=== PATIENT | male | born 1985 | race Caucasian/White ===

== ENCOUNTER → 2016-08-12 | Outpatient (REF) | payer OTHER ==
[~2016-08-12] MED LIST: IBUP200C PO; KEPP250T5 PO; NIFE60TA6 PO; No Historical Meds
[2016-08-12 12:26] LABS: ALBUMIN 4.2 GM/DL (3.2-5.2); ALBUMIN/GLOBULIN RATIO 1.11 (1.00-1.93); BILIRUBIN,DIRECT 0.2 MG/DL (0.0-0.2); BILIRUBIN,TOTAL 0.8 MG/DL (0.2-1.0)
== END ==
LOC: M LAB REF 10:56
PROVIDERS: ATTEND Surgery
DX: Z51.81 Encounter for therapeutic drug level monitoring (principal)

== ENCOUNTER 2016-10-19 18:05 | Emergency (ER) | payer MEDICAID, OTHER ==
[~2016-10-19] VITALS: Ht 172.7 cm; Wt 77.0 kg
[~2016-10-19 18:05] MED LIST changes: -IBUP200C PO; +IBUP200C10 PO
[2016-10-19] MEDS ORDERED: IBUP-1114 PO (18:15)
[2016-10-19] MEDS ORDERED: ACET30TAB PO (18:15)
--- NOTE | 2016-10-19 19:20 | REPUSA ---
CLINICAL HISTORY: Pain and swelling of the right testicle. TECHNIQUE: Realtime sonographic images were obtained in multiple projections. COMMENTS: Both testicles are of normal size and shape and are of homogeneous echo texture. The right testicle measures 3.9 x 2.8 x 2.8 cm. The right epididymal head measures 10 mm. The left testicle measures 4. 2 x 2.6 x 3.2 cm. Left epididymal head measures 10.8 mm. There is a tiny left epididymal head cyst measuring 3.3 x 2.6 x 2.3 mm. The scrotal wall thickness on the right measures 3.2 mm. The scrotal wall thickness on the left sigifredo ures 2.2 mm. Color Doppler images reveal normal symmetrical flow to the testicles. There is no evidence for testi cular torsion. There is no evidence of varicocele or hydrocele. IMPRESSION: There is a tiny left epididymal head cyst. Otherwise the study is unremarkable.
[2016-10-19] MEDS ORDERED: DOXY100C37 PO (19:26)
[2016-10-19] MEDS ORDERED: NAPR500T PO (19:26)
[2016-10-19] MEDS ORDERED: cefTRIAXone SOD 250 MG VIAL (J0696) IM ONE (19:30)
[2016-10-19 19:57] VITALS: BP 128/67
== END 2016-10-19 19:58 | disposition home or self-care (01) ==
LOC: M ED 18:05
DX: N45.1 Epididymitis (principal); Z87.891 Personal history of nicotine dependence
CPT/HCPCS: 76870; 93976; 96372; 99282; J0696

== ENCOUNTER → 2016-12-30 | Outpatient (REF) | payer MEDICAID ==
[~2016-12-30] MED LIST changes: +ACET30TAB PO; +DOXY100C37 PO; +IBUP-1114 PO; +NAPR500T PO
[2017-01-14 00:06] LABS: BENZODIAZEPINES, URINE SCREEN Negative ng/mL (Cutoff=200); METHADONE, URINE SCREEN Negative ng/mL (Cutoff=300); NALOXONE RESULT Negative (.); URINE NORBUPRENORPHINE Positive (.); URINE NORBUPRENORPHINE CONFIRM 110 ng/mL (Cutoff=10); pH, URINE 5.3 (4.5-8.9)
== END ==
LOC: M LAB REF 16:25
PROVIDERS: ATTEND Family Medicine Addiction Medicine
DX: F11.21 Opioid dependence, in remission (principal)

== ENCOUNTER 2017-04-04 10:40 | Emergency (ER) | payer OTHER | END 2017-04-04 13:45 | disposition home or self-care (01) | LOC: M ED 10:40 | DX: J06.9 Acute upper respiratory infection, unspecified (principal); J45.909 Unspecified asthma, uncomplicated; R56.9 Unspecified convulsions; F41.9 Anxiety disorder, unspecified; Z79.891 Long term (current) use of opiate analgesic; Z79.899 Other long term (current) drug therapy | CPT/HCPCS: 71046 ==

== ENCOUNTER → 2017-05-13 | Outpatient (CLI) | payer MEDICAID, OTHER | LOC: M OUTALCOH 07:32 | DX: Z13.9 Encounter for screening, unspecified (principal); F11.20 Opioid dependence, uncomplicated; F12.20 Cannabis dependence, uncomplicated ==

== ENCOUNTER 2017-10-01 08:54 | Emergency (ER) | payer OTHER ==
[2017-10-01] MEDS: GI COCKTAIL 50ML BTL(HYOSCYAMINE/MAALOX/LIDOCAINE VISCOUS)(1:3:1) PO (09:38)
[2017-10-01] MEDS: PANTOPRAZOLE 40MG INJ (PROTONIX) (C9113) IV (09:38)
[2017-10-01] MEDS: KETOROLAC 30 MG/ML VIAL (J1885) IV (09:38)
[2017-10-01] MEDS: NS 1,000 ML IV ×2 (09:38→11:14)
[2017-10-01] MEDS: ONDANSETRON 4MG/2ML VIAL (J2405) IV (09:38)
[2017-10-01 10:31] LABS: BASO % 0.2 % (0.0-1.0); EOS % 0.3 % (0.0-3.0); HEMATOCRIT 47.2 % (42.0-52.0); HEMOGLOBIN 16.8 g/dl (13.5-17.5); IMMATURE GRANULOCYTE % 0.4 % (0-3.0); LYMPH # 1.4 10^3/uL (1.5-4.5); LYMPH % 9.7 % (24.0-44.0); MEAN CORPUSCULAR HEMOGLOBIN 28.8 pg (27.0-33.0); MEAN CORPUSCULAR HGB CONC 35.6 g/dl (32.0-36.5); MONO # 1.6 10^3/uL (0.0-0.8); MONO % 11.5 % (0.0-5.0); NEUTROPHILS # 11.1 10^3/uL (1.8-7.7); NEUTROPHILS % 77.9 % (36.0-66.0); PLATELET COUNT, AUTOMATED 256 10^3/uL (150-450); RED BLOOD COUNT 5.83 10^6/uL (4.30-6.10); WHITE BLOOD COUNT 14.3 10^3/uL (4.0-10.0)
[2017-10-01 10:39] LABS: APPEARANCE, URINE CLEAR (CLEAR); BACTERIA, URINE AUTO NEGATIVE (NEGATIVE); BILIRUBIN, URINE AUTO NEGATIVE (NEGATIVE); BLOOD, URINE BLOOD 3+ (NEGATIVE); COLOR, URINE YELLOW (YELLOW); GLUCOSE, URINE (UA) AUTO NEGATIVE (NEGATIVE); KETONE, URINE AUTO TRACE mg/dL (NEGATIVE); LEUKOCYTE ESTERASE, URINE AUTO NEGATIVE (NEGATIVE); NITRITE, URINE AUTO NEGATIVE (NEGATIVE); PROTEIN, URINE AUTO 2+ mg/dL (NEGATIVE); RBC, URINE AUTO 8 /HPF (0-3); SPECIFIC GRAVITY URINE AUTO 1.021 (1.002-1.035); SQUAMOUS EPITHELIAL CELL UR AU 0 /HPF (0-6); WBC, URINE AUTO 9 /HPF (0-3)
[2017-10-01] MEDS ORDERED: methylPREDNISolone INJ 40 MG/1 ML VIAL (J2920) IV (10:45)
[2017-10-01 10:53] LABS: ALBUMIN 4.2 GM/DL (3.2-5.2); ALBUMIN/GLOBULIN RATIO 0.89 (1.00-1.93); ALKALINE PHOSPHATASE 95 U/L (45-117); ALT/SGPT 52 U/L (12-78); ANION GAP 6 MEQ/L (8-16); AST/SGOT 54 U/L (7-37); BILIRUBIN,TOTAL 1.1 MG/DL (0.2-1.0); BLOOD UREA NITROGEN 28 MG/DL (7-18); CARBON DIOXIDE LEVEL 33 MEQ/L (21-32); CHLORIDE LEVEL 90 MEQ/L (98-107); CREATININE FOR GFR 1.12 MG/DL (0.70-1.30); GLOMERULAR FILTRATION RATE > 60.0 (>60); GLUCOSE, FASTING 93 MG/DL (70-100); LIPASE 146 U/L (73-393); POTASSIUM SERUM 3.7 MEQ/L (3.5-5.1); SODIUM LEVEL 129 MEQ/L (136-145); TOTAL PROTEIN 8.9 GM/DL (6.4-8.2)
[2017-10-01] MEDS: methylPREDNISolone INJ 125 MG/2 ML VIAL (J2930) IV (11:00)
[2017-10-01] MEDS: diphenhydrAMINE INJ 50MG/ML VIAL (J1200) IV (11:00)
[2017-10-01 12:38] LABS: ANION GAP 4 MEQ/L (8-16); BLOOD UREA NITROGEN 26 MG/DL (7-18); CALCIUM LEVEL 7.8 MG/DL (8.5-10.1); CARBON DIOXIDE LEVEL 34 MEQ/L (21-32); CHLORIDE LEVEL 98 MEQ/L (98-107); CREATININE FOR GFR 0.98 MG/DL (0.70-1.30); GLOMERULAR FILTRATION RATE > 60.0 (>60); GLUCOSE, FASTING 84 MG/DL (70-100); POTASSIUM SERUM 3.5 MEQ/L (3.5-5.1); SODIUM LEVEL 136 MEQ/L (136-145)
== END 2017-10-01 13:07 | disposition home or self-care (01) ==
LOC: M ED 08:54
DX: R10.10 Upper abdominal pain, unspecified (principal); R11.2 Nausea with vomiting, unspecified; R31.9 Hematuria, unspecified; T40.2X5A Adverse effect of other opioids, initial encounter; X58.XXXA Exposure to other specified factors, initial encounter; Y92.89 Other specified places as the place of occurrence of the external cause; J45.909 Unspecified asthma, uncomplicated; I10 Essential (primary) hypertension; R56.9 Unspecified convulsions; K21.9 Gastro-esophageal reflux disease without esophagitis; Z79.891 Long term (current) use of opiate analgesic; Z88.0 Allergy status to penicillin; F17.210 Nicotine dependence, cigarettes, uncomplicated
CPT/HCPCS: C9113

== ENCOUNTER → 2017-11-13 | Outpatient (CLI) | payer OTHER ==
[2017-11-13 18:15] LABS: HEMATOCRIT 39.2 % (42.0-52.0); HEMOGLOBIN 13.4 g/dl (13.5-17.5); MEAN CORPUSCULAR HEMOGLOBIN 28.5 pg (27.0-33.0); MEAN CORPUSCULAR HGB CONC 34.2 g/dl (32.0-36.5); MEAN CORPUSCULAR VOLUME 83.2 fl (80.0-96.0); PLATELET COUNT, AUTOMATED 233 10^3/uL (150-450); RED BLOOD COUNT 4.71 10^6/uL (4.30-6.10); RED CELL DISTRIBUTION WIDTH 12.3 % (11.5-14.5); WHITE BLOOD COUNT 8.7 10^3/uL (4.0-10.0)
[2017-11-13 18:48] LABS: ALBUMIN/GLOBULIN RATIO 1.11 (1.00-1.93); ALKALINE PHOSPHATASE 87 U/L (45-117); ALT/SGPT 38 U/L (12-78); ANION GAP 11 MEQ/L (8-16); AST/SGOT 25 U/L (7-37); BILIRUBIN,TOTAL 0.4 MG/DL (0.2-1.0); BLOOD UREA NITROGEN 7 MG/DL (7-18); CALCIUM LEVEL 8.8 MG/DL (8.5-10.1); CARBON DIOXIDE LEVEL 26 MEQ/L (21-32); CHLORIDE LEVEL 105 MEQ/L (98-107); CREATININE FOR GFR 0.88 MG/DL (0.70-1.30); GLOMERULAR FILTRATION RATE > 60.0 (>60); GLUCOSE, FASTING 98 MG/DL (70-100); POTASSIUM SERUM 3.6 MEQ/L (3.5-5.1); SODIUM LEVEL 142 MEQ/L (136-145); TOTAL PROTEIN 7.6 GM/DL (6.4-8.2)
[2017-11-13 20:53] LABS: CHLAMYDIA DNA AMPLIFICATION NEGATIVE (NEGATIVE); GC DNA AMPLIFICATION NEGATIVE (NEGATIVE)
[2017-11-16 11:31] LABS: HEPATITIS B SURFACE ANTIGEN NEGATIVE (NEGATIVE)
[2017-11-16 12:00] LABS: HEPATITIS C VIRUS ABY INDEX > 11.0 INDEX (<0.8)
[2017-11-18 19:15] LABS: HIV 1&2 SCREEN CENTAUR NEGATIVE (NEGATIVE)
[2017-11-19 14:17] LABS: HCV RNA NAA QUALITATIVE Positive (Negative)
== END ==
LOC: M LAB 17:18
DX: F11.20 Opioid dependence, uncomplicated (principal)
CPT/HCPCS: 93005

== ENCOUNTER → 2018-09-15 | Outpatient (CLI) | payer OTHER ==
[~2018-09-15] MED LIST changes: +ACET-716 PO; -ACET30TAB PO; +GABA600T4 PO; +HYDR25OI TOP; -IBUP200C10 PO; +IBUP200C25 PO; +NAPR-837 PO; -NAPR500T PO; +SUBO8MIS; +TESS100C PO; +ZOFR4TAB14 PO
--- NOTE | 2018-09-15 21:48 | REP ---
Clinical: Trauma. Technique: AP, lateral, bilateral oblique views left foot . Findings: The osseous structures and joint spaces are intact and normal. No significant acute fracture identified. A minuscule bone density is identified at the base of the fourth toe distal phalanx which may represent tiny fracture and should be correlated clinically. Surrounding soft tissues are unremarkable. No subcutaneous emphysema or radiodense foreign body. Impression: As above. Electronically Signed by Howard Grace MD 09/15/2018 09:40 P
== END ==
LOC: M WUC 11:46
PROVIDERS: ATTEND Physician Assistant
DX: M79.675 Pain in left toe(s) (principal)

== ENCOUNTER 2018-12-17 13:00 | Emergency (ER) | payer OTHER ==
[~2018-12-17] VITALS: Ht 175.3 cm; Wt 85.0 kg
[~2018-12-17 13:00] MED LIST changes: -TRIL1TAB PO
--- NOTE | 2018-12-17 15:03 | REP ---
Head CT without contrast: History: Seizures. Comparison study: Comparison CT brain study November 09, 2010. Comparison MRI study August 14, 2009. CT findings: Bone window settings demonstrate an intact bony calvarium. There is no evidence of skull fracture or incidental bony calvarial lesion. The visualized paranasal sinuses appear clear. No intraorbital abnormality is seen. On soft tissue window setting images; the lateral, third, and fourth ventricles are normal in size and position. Ruvalcaba-white differentiation pattern is normal above and below the tentorium. There are is no evidence of intracranial hemorrhage. No mass, edema, infarction, or midline shift is seen. No extra-axial fluid collection is appreciated. Impression: Negative noncontrast head CT. Electronically Signed by Ciaran Maddox MD 12/17/2018 02:54 P
[2018-12-17] MEDS ORDERED: OXcarbazepine 300 MG TAB PO STA (15:17)
[2018-12-17] MEDS ORDERED: TRIL1TAB PO (15:18)
[2018-12-17 15:45] VITALS: BP 102/61
== END 2018-12-17 15:50 | disposition home or self-care (01) ==
LOC: M ED 13:00
DX: R56.9 Unspecified convulsions (principal); F17.200 Nicotine dependence, unspecified, uncomplicated; F12.10 Cannabis abuse, uncomplicated; Z79.899 Other long term (current) drug therapy; Z88.0 Allergy status to penicillin

== ENCOUNTER → 2018-12-17 | Outpatient (CLI) | payer OTHER ==
[~2018-12-17] MED LIST changes: +TRIL1TAB PO
[2018-12-17 13:42] LABS: HEMATOCRIT 42.7 % (42.0-52.0); HEMOGLOBIN 14.4 g/dl (13.5-17.5); MEAN CORPUSCULAR HEMOGLOBIN 28.9 pg (27.0-33.0); MEAN CORPUSCULAR HGB CONC 33.7 g/dl (32.0-36.5); MEAN CORPUSCULAR VOLUME 85.6 fl (80.0-96.0); PLATELET COUNT, AUTOMATED 224 10^3/uL (150-450); RED BLOOD COUNT 4.99 10^6/uL (4.30-6.10)
[2018-12-17 14:16] LABS: ALBUMIN 3.9 GM/DL (3.2-5.2); ALT/SGPT 48 U/L (12-78); BILIRUBIN,TOTAL 0.4 MG/DL (0.2-1.0); BLOOD UREA NITROGEN 8 MG/DL (7-18); CALCIUM LEVEL 9.4 MG/DL (8.5-10.1); CARBON DIOXIDE LEVEL 30 MEQ/L (21-32); CHLORIDE LEVEL 105 MEQ/L (98-107); CREATININE FOR GFR 0.94 MG/DL (0.70-1.30); GLOMERULAR FILTRATION RATE > 60.0 (>60); GLUCOSE, FASTING 99 MG/DL (70-100); POTASSIUM SERUM 4.2 MEQ/L (3.5-5.1); SODIUM LEVEL 141 MEQ/L (136-145); TOTAL PROTEIN 7.5 GM/DL (6.4-8.2)
[2018-12-17 14:26] LABS: HEPATITIS B SURFACE ANTIGEN NEGATIVE (NEGATIVE)
[2018-12-17 14:55] LABS: HIV 1&2 SCREEN CENTAUR NEGATIVE (NEGATIVE)
[2018-12-17 17:44] LABS: HEPATITIS C VIRUS ABY INDEX > 11.0 INDEX (<0.8)
--- NOTE | 2018-12-18 10:05 | ECGEPIP ---
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
[2018-12-20 16:08] LABS: CHLAMYDIA DNA AMPLIFICATION NEGATIVE (NEGATIVE); GC DNA AMPLIFICATION NEGATIVE (NEGATIVE)
== END ==
LOC: M LAB 12:17
PROVIDERS: ATTEND Family Medicine
DX: F11.20 Opioid dependence, uncomplicated (principal)

== ENCOUNTER → 2019-04-19 | Outpatient (CLI) | payer OTHER ==
[~2019-04-19] MED LIST changes: +NIFE1TAB51 PO; -NIFE60TA6 PO; +TRIL1TAB PO
[2019-04-19 11:51] LABS: BASO % 0.4 % (0.0-1.0); EOS # 0.1 10^3/uL (0.0-0.5); EOS % 0.9 % (0.0-3.0); HEMATOCRIT 43.2 % (42.0-52.0); HEMOGLOBIN 14.9 g/dl (13.5-17.5); LYMPH # 1.9 10^3/uL (1.5-5.0); LYMPH % 23.8 % (24.0-44.0); MEAN CORPUSCULAR HEMOGLOBIN 29.5 pg (27.0-33.0); MEAN CORPUSCULAR HGB CONC 34.5 g/dl (32.0-36.5); MEAN CORPUSCULAR VOLUME 85.5 fl (80.0-96.0); MONO # 0.6 10^3/uL (0.0-0.8); MONO % 7.2 % (0.0-5.0); NEUTROPHILS # 5.2 10^3/uL (1.5-8.5); NEUTROPHILS % 67.4 % (36.0-66.0); PLATELET COUNT, AUTOMATED 225 10^3/uL (150-450); RED BLOOD COUNT 5.05 10^6/uL (4.30-6.10); WHITE BLOOD COUNT 7.8 10^3/uL (4.0-10.0)
[2019-04-19 12:19] LABS: ALBUMIN 4.2 GM/DL (3.2-5.2); ALT/SGPT 39 U/L (12-78); BILIRUBIN,TOTAL 0.3 MG/DL (0.2-1.0); BLOOD UREA NITROGEN 11 MG/DL (7-18); CALCIUM LEVEL 9.5 MG/DL (8.5-10.1); CARBON DIOXIDE LEVEL 30 MEQ/L (21-32); CHLORIDE LEVEL 103 MEQ/L (98-107); CREATININE FOR GFR 0.86 MG/DL (0.70-1.30); GLOMERULAR FILTRATION RATE > 60.0 (>60); GLUCOSE, FASTING 83 MG/DL (70-100); POTASSIUM SERUM 4.3 MEQ/L (3.5-5.1); SODIUM LEVEL 137 MEQ/L (136-145); TOTAL PROTEIN 7.2 GM/DL (6.4-8.2)
== END ==
LOC: M LAB 10:32
PROVIDERS: ATTEND Psychiatry & Neurology Neurology
DX: R56.9 Unspecified convulsions (principal)

== ENCOUNTER → 2019-04-19 | Outpatient (CLI) | payer OTHER ==
[2019-04-19 12:27] LABS: ALBUMIN 4.1 GM/DL (3.2-5.2); ALT/SGPT 41 U/L (12-78); BILIRUBIN,TOTAL 0.4 MG/DL (0.2-1.0); BLOOD UREA NITROGEN 10 MG/DL (7-18); CALCIUM LEVEL 9.2 MG/DL (8.5-10.1); CARBON DIOXIDE LEVEL 29 MEQ/L (21-32); CHLORIDE LEVEL 102 MEQ/L (98-107); CHOLESTEROL LEVEL 189 MG/DL (<200); CHOLESTEROL RISK RATIO 3.315 (<5); CREATININE FOR GFR 0.91 MG/DL (0.70-1.30); FREE T4 0.96 NG/DL (0.76-1.46); GLOMERULAR FILTRATION RATE > 60.0 (>60); GLUCOSE, FASTING 80 MG/DL (70-100); HDL CHOLESTEROL 57 MG/DL (>40); LDL CHOLESTEROL 115 MG/DL (<100); NON-HDL-C 132 MG/DL; POTASSIUM SERUM 4.2 MEQ/L (3.5-5.1); SODIUM LEVEL 138 MEQ/L (136-145); TOTAL PROTEIN 7.4 GM/DL (6.4-8.2); TRIGLYCERIDES LEVEL 87 MG/DL (<150)
[2019-04-19 12:52] LABS: TOTAL 25(OH) VITAMIN D 22.2 NG/ML (30.0-100.0)
[2019-04-20 11:55] LABS: HEPATITIS C VIRUS ABY INDEX > 11.0 INDEX (<0.8)
== END ==
LOC: M LAB 10:36
PROVIDERS: ATTEND Nurse Practitioner Family
DX: Z00.00 Encounter for general adult medical examination without abnormal findings (principal); Z13.9 Encounter for screening, unspecified; F11.21 Opioid dependence, in remission; F41.1 Generalized anxiety disorder; B18.2 Chronic viral hepatitis C

== ENCOUNTER → 2019-06-22 | Outpatient (REF) | payer OTHER ==
[2019-06-22 16:36] LABS: BASO # 0.1 10^3/uL (0.0-0.2); BASO % 0.7 % (0.0-1.0); EOS # 0.2 10^3/uL (0.0-0.5); EOS % 2.3 % (0.0-3.0); HEMATOCRIT 45.5 % (42.0-52.0); HEMOGLOBIN 15.7 g/dl (13.5-17.5); LYMPH # 2.1 10^3/uL (1.5-5.0); LYMPH % 30.8 % (24.0-44.0); MEAN CORPUSCULAR HEMOGLOBIN 29.3 pg (27.0-33.0); MEAN CORPUSCULAR HGB CONC 34.5 g/dl (32.0-36.5); MONO # 0.6 10^3/uL (0.0-0.8); NEUTROPHILS # 3.9 10^3/uL (1.5-8.5); NEUTROPHILS % 57.1 % (36.0-66.0); PLATELET COUNT, AUTOMATED 204 10^3/uL (150-450); RED BLOOD COUNT 5.35 10^6/uL (4.30-6.10); WHITE BLOOD COUNT 6.9 10^3/uL (4.0-10.0)
[2019-06-23 08:15] LABS: HIV 1&2 SCREEN CENTAUR NEGATIVE (NEGATIVE)
== END ==
LOC: M LAB REF 16:11
PROVIDERS: ATTEND Nurse Practitioner Adult Health
DX: B18.2 Chronic viral hepatitis C (principal)

== ENCOUNTER 2019-10-06 12:13 | Emergency (ER) | payer OTHER ==
[2019-10-06] MEDS ORDERED: HALOPERIDOL 5MG/ML VIAL (J1630 PER 1) As Ordered ONE (12:32)
[2019-11-13 13:46] LABS: BASO # 0.1 10^3/uL (0.0-0.2); BASO % 0.5 % (0.0-1.0); EOS # 0.3 10^3/uL (0.0-0.5); EOS % 2.2 % (0.0-3.0); HEMATOCRIT 51.1 % (42.0-52.0); HEMOGLOBIN 16.4 g/dl (13.5-17.5); LYMPH # 5.5 10^3/uL (1.5-5.0); LYMPH % 40.3 % (24.0-44.0); MEAN CORPUSCULAR HEMOGLOBIN 29.7 pg (27.0-33.0); MEAN CORPUSCULAR HGB CONC 32.1 g/dl (32.0-36.5); MEAN CORPUSCULAR VOLUME 92.4 fl (80.0-96.0); MONO % 7.6 % (0.0-5.0); NEUTROPHILS # 6.7 10^3/uL (1.5-8.5); NEUTROPHILS % 49.1 % (36.0-66.0); PLATELET COUNT, AUTOMATED 199 10^3/uL (150-450); RED BLOOD COUNT 5.53 10^6/uL (4.30-6.10); WHITE BLOOD COUNT 13.6 10^3/uL (4.0-10.0)
--- NOTE | 2019-11-23 16:19 | ECGEPIP ---
SINUS RHYTHM WITH SINUS ARRHYTHMIA POSSIBLE LEFT ATRIAL ENLARGEMENT BORDERLINE ECG NO OLD AVAILABLE SEE SCANNED DOWNTIME REPORT MTDD
--- NOTE | 2019-11-25 13:35 | REP ---
CT OF THE HEAD WITHOUT CONTRAST: HISTORY: Seizures. TECHNIQUE: Axial noncontrast images from the skull base to the vertex with coronal reformations. FINDINGS: The ventricles, sulci and cisterns are symmetric and normal. Ruvalcaba-white differentiation is maintained. No acute intracranial hemorrhage, mass or mass effect. No extra-axial fluid collection. The calvarium is intact. The paranasal sinuses and mastoid air cells are clear. IMPRESSION: Negative noncontrast head CT. No evidence for acute intracranial pathology or trauma/injury. MTDD
[2019-12-16 15:13] LABS: BARBITURATES URINE NEGATIVE (NEGATIVE); BENZODIAZEPINES URINE POSITIVE (NEGATIVE); CANNABINOIDS URINE POSITIVE (NEGATIVE); COCAINE METABOLITE URINE NEGATIVE (NEGATIVE); METHADONE URINE NEGATIVE (NEGATIVE); OPIATES URINE NEGATIVE (NEGATIVE); PHENCYCLIDINE URINE NEGATIVE (NEGATIVE)
[2019-12-16 15:14] LABS: AMPHETAMINES LEVEL URINE NEGATIVE (NEGATIVE)
[2019-12-16 15:15] LABS: ALBUMIN 3.9 GM/DL (3.2-5.2); ALT/SGPT 48 U/L (12-78); BILIRUBIN,TOTAL 0.4 MG/DL (0.2-1.0); BLOOD UREA NITROGEN 13 MG/DL (7-18); CALCIUM LEVEL 8.8 MG/DL (8.5-10.1); CARBON DIOXIDE LEVEL 24 MEQ/L (21-32); CHLORIDE LEVEL 112 MEQ/L (98-107); CPK CREATINE PHOSPHOKINASE 460 U/L (39-308); CREATININE FOR GFR 0.92 MG/DL (0.70-1.30); ETHYL ALCOHOL (ETHANOL) < 0.003 % (0.000-0.010); GLOMERULAR FILTRATION RATE > 60.0 (>60); GLUCOSE, FASTING 84 MG/DL (70-100); POTASSIUM SERUM 4.1 MEQ/L (3.5-5.1); SALICYLATE LEVEL 5.4 MG/DL (5.0-30.0); SODIUM LEVEL 144 MEQ/L (136-145); TOTAL PROTEIN 7.4 GM/DL (6.4-8.2)
[2019-12-16 15:16] LABS: ABG BASE EXCESS -4.6 (-2.0-2.0); ABG HCO3 19.8 MEQ/L (22.0-26.0); ABG O2 SATURATION 98.9 % (95.0-99.0); ABG PARTIAL PRESSURE CO2 34.9 mmHg (35.0-45.0); ABG SITE NOT GIVEN; ABG STANDARD HCO3 20.7 MEQ/L (22.0-26.0); ABG TOTAL CO2 20.8 MEQ/L (22.0-29.0); ABG pH (ARTERIAL) 7.371 UNITS (7.350-7.450)
[2019-12-16 15:18] LABS: ABG BASE EXCESS -21.9 (-2.0-2.0); ABG HCO3 8.4 MEQ/L (22.0-26.0); ABG PARTIAL PRESSURE CO2 33.7 mmHg (35.0-45.0); ABG PARTIAL PRESSURE O2 215.2 mmHg (75.0-100.0); ABG STANDARD HCO3 9.6 MEQ/L (22.0-26.0); ABG TOTAL CO2 9.4 MEQ/L (22.0-29.0); ABG pH (ARTERIAL) 7.015 UNITS (7.350-7.450)
== END 2019-10-06 18:00 | disposition home or self-care (01) ==
LOC: M ED 12:13
DX: G40.909 Epilepsy, unspecified, not intractable, without status epilepticus (principal); Z79.899 Other long term (current) drug therapy; Z79.891 Long term (current) use of opiate analgesic
CPT/HCPCS: 70450; 71046; 80053; 80307; 82550; 82803; 83605; 85025; 93005; 96372; 99284; G0480; J1630

== ENCOUNTER → 2020-05-22 | Outpatient (REF) | payer OTHER ==
[2020-05-22 14:21] LABS: BASO # 0.1 10^3/uL (0.0-0.2); BASO % 0.8 % (0.0-1.0); EOS # 0.2 10^3/uL (0.0-0.5); EOS % 2.3 % (0.0-3.0); HEMATOCRIT 43.1 % (42.0-52.0); HEMOGLOBIN 14.7 g/dl (13.5-17.5); MEAN CORPUSCULAR HEMOGLOBIN 29.8 pg (27.0-33.0); MEAN CORPUSCULAR HGB CONC 34.1 g/dl (32.0-36.5); MEAN CORPUSCULAR VOLUME 87.4 fl (80.0-96.0); MONO # 0.7 10^3/uL (0.0-0.8); MONO % 11.1 % (2.0-8.0); NEUTROPHILS # 3.7 10^3/uL (1.5-8.5); NEUTROPHILS % 55.5 % (36.0-66.0); PLATELET COUNT, AUTOMATED 197 10^3/uL (150-450); RED BLOOD COUNT 4.93 10^6/uL (4.30-6.10); WHITE BLOOD COUNT 6.6 10^3/uL (4.0-10.0)
[2020-05-22 16:15] LABS: ALBUMIN 4.1 GM/DL (3.2-5.2); ALT/SGPT 56 U/L (12-78); BILIRUBIN,TOTAL 0.3 MG/DL (0.2-1.0); BLOOD UREA NITROGEN 15 MG/DL (7-18); CALCIUM LEVEL 9.1 MG/DL (8.5-10.1); CARBON DIOXIDE LEVEL 31 MEQ/L (21-32); CHLORIDE LEVEL 106 MEQ/L (98-107); GLOMERULAR FILTRATION RATE > 60.0 (>60); GLUCOSE, FASTING 89 MG/DL (70-100); SODIUM LEVEL 141 MEQ/L (136-145); TOTAL PROTEIN 7.2 GM/DL (6.4-8.2)
[2020-05-22 16:41] LABS: HEPATITIS B SURFACE ANTIBODY POSITIVE (POSITIVE)
[2020-05-22 16:52] LABS: HEPATITIS B SURFACE ANTIGEN NEGATIVE (NEGATIVE)
== END ==
LOC: M SFHCPLAZ 10:19
PROVIDERS: ATTEND Internal Medicine Infectious Disease
DX: B18.2 Chronic viral hepatitis C (principal)

== ENCOUNTER → 2020-08-14 | Outpatient (REF) | payer OTHER ==
[2020-08-14 15:52] LABS: ALBUMIN 3.9 GM/DL (3.2-5.2); BILIRUBIN,DIRECT 0.1 MG/DL (0.0-0.2); BILIRUBIN,TOTAL 0.4 MG/DL (0.2-1.0); TOTAL PROTEIN 7.5 GM/DL (6.4-8.2)
== END ==
LOC: M SFHCPLAZ 13:13
PROVIDERS: ATTEND Internal Medicine Infectious Disease
DX: B18.2 Chronic viral hepatitis C (principal)

== ENCOUNTER 2020-08-29 12:49 | Inpatient (IN) | payer OTHER ==
[~2020-08-29] VITALS: Ht 175.3 cm; Wt 84.6 kg
[~2020-08-29 12:49] MED LIST changes: -DOXY100C37 PO; +DOXY1CAP62 PO; -SUBO8MIS; +SUBO8MIS SL
[2020-08-29] MEDS ORDERED: NALOXONE 2MG/2ML SYRINGE (J2310 PER 1MG) IV STA (13:04)
[2020-08-29] MEDS ORDERED: NS 1,000 ML IV ONE (13:05)
[2020-08-29] MEDS ORDERED: levETIRAcetam INJection 750 MG in D5W 100 ML IV ONE ×2 (13:05→22:30)
--- NOTE | 2020-08-29 13:32 | REP ---
INDICATION: seizure. COMPARISON: 10/06/2019. TECHNIQUE: Single portable AP view of the chest was performed. FINDINGS: There is no acute infiltrate or pulmonary edema. Lungs are clear. The heart is not significantly enlarged. The mediastinal silhouette is unremarkable. The visualized osseous structures are intact. IMPRESSION: No acute pulmonary disease. <Electronically signed by Osei Ruvalcaba > 08/29/20 [id number]
[2020-08-29 13:33] LABS: BASO # 0.1 10^3/uL (0.0-0.2); BASO % 0.5 % (0.0-1.0); EOS # 0.3 10^3/uL (0.0-0.5); HEMATOCRIT 48.7 % (42.0-52.0); HEMOGLOBIN 15.7 g/dl (13.5-17.5); LYMPH # 5.7 10^3/uL (1.5-5.0); LYMPH % 38.3 % (24.0-44.0); MEAN CORPUSCULAR HEMOGLOBIN 29.4 pg (27.0-33.0); MEAN CORPUSCULAR HGB CONC 32.2 g/dl (32.0-36.5); MEAN CORPUSCULAR VOLUME 91.2 fl (80.0-96.0); MONO # 0.6 10^3/uL (0.0-0.8); MONO % 4.3 % (2.0-8.0); NEUTROPHILS % 53.9 % (36.0-66.0); PLATELET COUNT, AUTOMATED 268 10^3/uL (150-450); RED BLOOD COUNT 5.34 10^6/uL (4.30-6.10)
[2020-08-29 13:35] LABS: WHITE BLOOD COUNT 14.8 10^3/uL (4.0-10.0)
[2020-08-29 14:07] LABS: ALBUMIN 3.8 GM/DL (3.2-5.2); ALT/SGPT 20 U/L (12-78); BILIRUBIN,DIRECT < 0.1 MG/DL (0.0-0.2); BILIRUBIN,TOTAL 0.2 MG/DL (0.2-1.0); CK-MB VALUE MASS 2.6 NG/ML (<3.6); CPK CREATINE PHOSPHOKINASE 203 U/L (39-308); ETHYL ALCOHOL (ETHANOL) < 0.003 % (0.000-0.010); MB/CK RELATIVE INDEX 1.28 (< OR =4); SALICYLATE LEVEL 4.1 MG/DL (5.0-30.0); TOTAL PROTEIN 7.1 GM/DL (6.4-8.2); TROPONIN I 0.24 NG/ML (< 0.10)
[2020-08-29 14:08] LABS: ACETAMINOPHEN LEVEL < 2.0 UG/ML (10.0-30.0)
[2020-08-29 14:13] LABS: AMPHETAMINES LEVEL URINE NEGATIVE (NEGATIVE); BARBITURATES URINE NEGATIVE (NEGATIVE); BENZODIAZEPINES URINE POSITIVE (NEGATIVE); CANNABINOIDS URINE POSITIVE (NEGATIVE); COCAINE METABOLITE URINE NEGATIVE (NEGATIVE); METHADONE URINE NEGATIVE (NEGATIVE); OPIATES URINE NEGATIVE (NEGATIVE); PHENCYCLIDINE URINE NEGATIVE (NEGATIVE)
[2020-08-29] MEDS ORDERED: LORazepam 2 MG/ML VIAL IV STA ×2 (14:13→16:37)
[2020-08-29] MEDS ORDERED: LORazepam 2 MG/ML VIAL As Ordered ONE (14:15)
[2020-08-29] MEDS ORDERED: NS 1,500 ML in IV 1 EA IV ONE (14:20)
[2020-08-29 14:26] LABS: VENOUS BASE EXCESS -22.8 (-2.0-2.0); VENOUS HCO3 11.3 MEQ/L (23.0-27.0); VENOUS O2 SATURATION 95.6 % (60.0-80.0); VENOUS PARTIAL PRESSURE CO2 61.3 mmHg (38.0-50.0); VENOUS PARTIAL PRESSURE O2 117.5 mmHg (30.0-50.0); VENOUS PH 6.882 UNITS (7.330-7.430); VENOUS TOTAL CO2 13.1 MEQ/L (24.0-28.0)
[2020-08-29 15:10] LABS: VENOUS BASE EXCESS -9.8 (-2.0-2.0); VENOUS HCO3 18.6 MEQ/L (23.0-27.0); VENOUS PARTIAL PRESSURE CO2 50.2 mmHg (38.0-50.0); VENOUS PARTIAL PRESSURE O2 108.6 mmHg (30.0-50.0); VENOUS PH 7.187 UNITS (7.330-7.430); VENOUS STANDARD HCO3 16.8 MEQ/L; VENOUS TOTAL CO2 20.2 MEQ/L (24.0-28.0)
[2020-08-29 17:40] LABS: RSV AMPLIFICATION NEGATIVE (NEGATIVE)
--- NOTE | 2020-08-29 18:04 | REPVR ---
PROCEDURE INFORMATION: Exam: CT Head Without Contrast Exam date and time: 08/29/2020 5:01 PM Age: 35 years old Clinical indication: Injury or trauma; Fall; Blunt trauma (contusions or hematomas); Additional info: Head injury TECHNIQUE: Imaging protocol: Computed tomography of the head without contrast. Radiation optimization: All CT scans at this facility use at least one of these dose optimization techniques: automated exposure control; mA and/or kV adjustment per patient size (includes targeted exams where dose is matched to clinical indication); or iterative reconstruction. COMPARISON: 1. CT Head without contrast 10/06/2019 3:[address] Head without contrast 12/17/2018 2:42 PM FINDINGS: Brain: Normal. No hemorrhage. Unremarkable white matter. No mass effect. Cerebral ventricles: No ventriculomegaly. Paranasal sinuses: Small retention cyst right maxillary sinus. Otherwise unremarkable. Mastoid air cells: Visualized mastoid air cells are well aerated. Bones/joints: Unremarkable. No acute fracture. Soft tissues: Unremarkable. IMPRESSION: No acute intracranial findings. Electronically signed by: Nitesh Tang On 08/29/2020 18:03:36 PM
[2020-08-29] MEDS ORDERED: SUMA100T2 PO (18:31)
[2020-08-29] MEDS ORDERED: SOFO1TAB PO (18:31)
[2020-08-29] MEDS ORDERED: ALBU8.5H INH (18:31)
[2020-08-29] MEDS ORDERED: PATIENT COMMENT (18:31)
[2020-08-29] MEDS ORDERED: FAMO40TA3 PO (18:31)
[2020-08-29] MEDS ORDERED: LEVE750T5 PO (18:31)
[2020-08-29] MEDS ORDERED: MOM 30ML SUSPENSION UDC PO PRN (22:10)
[2020-08-29] MEDS ORDERED: MAALOX 30 ML SUSP *UDC PO PRN (22:10)
[2020-08-29] MEDS ORDERED: ACETAMINOPHEN TAB 650MG DOSE (2X325MG) PO PRN (22:10)
--- NOTE | 2020-08-29 22:13 | HPEPDOC ---
[facility] Medical History & Physical Date of Admission Aug 29, 2020 Date of Service: Aug 29, 2020 History and Physical CHIEF COMPLAINT: Seizure HISTORY OF PRESENT ILLNESS: 35-year-old male with a history of asthma, hepatitis C, epilepsy, polysubstance abuse, brought to ER by EMS, for 2 episodes of status epilepticus, first lasting 15 seconds, second lasting 15 minutes. On arrival patient was obtunded, GSC 3. Received 2 mg narcan in ER given hx of opiate use (presently on suboxone), which seemed to rouse patient. He takes keppra 750 mg daily, which was given as an IV infusion. Neurologist Dr. Mcconnell was consulted from ER recommended additional 750 mg IV, and to increase keppra to 1500 mg PO bid. Of note, patient's lactic acid was 14.9, trop 0.24 on arrival, without acute ischemic changes on EKG. Repeat trop was 7.09. Repeat EKG showing T wave inversions in anterior leads. Patient denied active chest pain, but has no recollection for past 6-8 hours. PAST MEDICAL HISTORY: asthma epilepsy/seizure disorder Hep C polysubstance abuse (primarily opiates) PAST SURGICAL HISTORY: unable to clarify with patient due to AMS. SOCIAL HISTORY: per report hx of polysubstance abuse (methamphetamine, opiates) FAMILY HISTORY: reviewed with patient, unable to provide due to AMS ALLERGIES: Please see below. REVIEW OF SYSTEMS: unable to complete comprehensive ROS due to AMS denies chest pain. HOME MEDICATIONS: Please see below. PHYSICAL EXAMINATION: VITAL SIGNS: please see below General: NAD, comfortable HEENT: PERRLA, EOMI, sclerae clear Neck: supple, normal ROM, no JVD Respiratory: lungs CTAB, no wheeze, no rales, no crackles CVS: RRR, normal S1, S2, no murmurs Abdo: soft, no masses, no hepatosplenomegaly, BS+, no rebound tenderness Extremities: no edema, pulses 2+ MSK: no joint deformities, normal ROM Neuro: no focal neuro deficits, moving all 4 extremities, CN2-12 intact. Strength 5/5 in all 4 extremities. No nystagmus. Psych: calm, cooperative, AAO x 2 LABORATORY DATA: See below. IMAGING: CT head wo contrast (08/29/20) FINDINGS: Brain: Normal. No hemorrhage. Unremarkable white matter. No mass effect. Cerebral ventricles: No ventriculomegaly. Paranasal sinuses: Small retention cyst right maxillary sinus. Otherwise unremarkable. Mastoid air cells: Visualized mastoid air cells are well aerated. Bones/joints: Unremarkable. No acute fracture. Soft tissues: Unremarkable. IMPRESSION: No acute intracranial findings. MICROBIOLOGY: Please see below. CXR (08/29/20): FINDINGS: There is no acute infiltrate or pulmonary edema. Lungs are clear. The heart is not significantly enlarged. The mediastinal silhouette is unremarkable. The vi sualized osseous structures are intact. IMPRESSION: No acute pulmonary disease ASSESSMENT: 35-year-old male with a history of asthma, hepatitis C, epilepsy, polysubstance abuse, brought to ER by EMS, for 2 episodes of status epilepticus, first lasting 15 seconds, second lasting 15 minutes. On arrival patient was obtunded, GSC 3. Received 2 mg narcan in ER given hx of opiate use (presently on suboxone), which seemed to rouse patient. He takes keppra 750 mg daily, which was given as an IV infusion. Neurologist Dr. Mcconnell was consulted from ER recommended additional 750 mg IV, and to increase keppra to 1500 mg PO bid. Of note, patient's lactic acid was 14.9, trop 0.24 on arrival, without acute ischemic changes on EKG. Repeat trop was 7.09. Repeat EKG showing T wave inversions in anterior leads. Patient denied active chest pain, but has no recollection for past 6-8 hours. . PLAN: Status epilepticus - 2 episodes, 15 sec and 15 min - presented with low GCS, obtunded. Due to hx of opiate abuse and presently on suboxone, was given 2 mg naloxone - per report, has good compliance with meds - CT head without acute findings, as above - received 750 mg IV keppra in ER, as well as ativan 3 mg IV for agitation during post ictal state - D/w Dr. Mcconnell, increase dose of keppra to 1500 mg PO BID - administered additional dose of keppra 750 mg IV NSTEMI - Trop 0.24 on arriva, EKG showing NSR - repeat trop 7.09, with t wave inversions on anterior leads - denies active chest pain - d/w Dr. Odom (cardiology), recommended ASA 81 mg, plavix 300 mg - does not recommend starting heparin ggt due to possibility of repeat seizure and increased risk of intracranial bleed - recommends transfer to higher level of care with PCI capabilities - d/w Dr. Milner, petroleum production engineer and Dr. Brody, wheel braider at [facility], who have accepted patient for transfer to ICU, under ICU care and cardiology consulting - I discussed risks with patient, agreeable for transfer. Elevated Lactic acid - on arrival LA 14.9 - s/p 2500 cc IV NS bolus, LA normalized to < 1.5 Rhabdomyolysis - CK on arrival 200, increased to 1000 - s/p 2500 cc NS bolus - presently on maintenance fluids Asthma - albuterol nebs prn HCV - needs to follow up with ID outpatient Dispo: transfer to [facility] due to NSTEMI, need for PCI capabilities. Vital Signs Vital Signs Date Time Temp Pulse Resp B/P (MAP) Pulse Ox O2 Delivery O2 Flow Rate FiO2 08/29/20 21:00 81 20 121/72 (88) 96 Room Air 08/29/20 13:27 97.6 08/29/20 12:58 4.0 Laboratory Data Labs 24H Laboratory Tests 2 08/29/20 13:00: Immature Granulocyte % (Auto) 1.0, Neutrophils (%) (Auto) 53.9, Lymphocytes (%) (Auto) 38.3, Monocytes (%) (Auto) 4.3, Eosinophils (%) (Auto) 2.0, Basophils (%) (Auto) 0.5, Neutrophils # (Auto) 8.0, Lymphocytes # (Auto) 5.7H, Monocytes # (Auto) 0.6, Eosinophils # (Auto) 0.3, Basophils # (Auto) 0.1, Nucleated Red Blood Cells % (auto) 0.0, Total Bilirubin 0.2, Direct Bilirubin < 0.1, Aspartate Amino Transf (AST/SGOT) 19, Alanine Aminotransferase (ALT/SGPT) 20, Alkaline Phosphatase 76, Total Creatine Kinase 203, Creatine Kinase MB 2.6, Creatine Kinase MB Relative Index 1.28, Troponin I 0.24H, Total Protein 7.1, Albumin 3.8, Albumin/Globulin Ratio 1.2, Thyroid Stimulating Hormone (TSH) 2.120, Salicylates Level 4.1L, Urine Opiates Screen NEGATIVE, Urine Methadone Screen NEGATIVE, Acetaminophen Level < 2.0L, Urine Barbiturates Screen NEGATIVE, Urine Phencyclidine Screen NEGATIVE, Urine Amphetamines Screen NEGATIVE, Urine Benzodiazepines Screen POSITIVEH, Urine Cocaine Metabolite Screen NEGATIVE, Urine Cannabinoids Screen POSITIVEH, Ethyl Alcohol Level < 0.003 08/29/20 13:03: POC pH (Misc Panel) 6.928*L, POC Base Excess (Misc Panel) -22.0L, POC Saturated Percent O2 (Misc) 85L, POC pO2 (Misc Panel) 80.0, POC pCO2 (Misc Panel) 49.0H, POC HCO3 (Misc Panel) 10.2L, POC Total CO2 (Misc Panel) 12.0L 08/29/20 13:04: Urine Color YELLOW, Urine Appearance HAZY, Urine pH 5.0, Urine Specific [place] 1.011, Urine Protein 2+H, Urine Glucose (UA) NEGATIVE, Urine Ketones NEGATIVE, Urine Blood 2+H, Urine Nitrite NEGATIVE, Urine Bilirubin NEGATIVE, Urine Urobilinogen 0.2, Urine Leukocyte Esterase NEGATIVE, Urine WBC (Auto) 3, Urine RBC (Auto) 7H, Urine Hyaline Casts (Auto) 0, Urine Bacteria (Auto) 1+H, Urine Squamous Epithelial Cells 0, Urine Mucus (Auto) SMALL, Urine Sperm (Auto) , Blood Gas Bicarbonate Standard 9.0, Venous Blood pH 6.882L, Venous Blood Partial Pressure CO2 61.3H, Venous Blood Partial Pressure O2 117.5H, Venous Blood Total Carbon Dioxide 13.1L, Venous Blood HCO3 11.3L, Venous Blood Oxygen Saturation 95.6H, Venous Blood Base Excess -22.8L 08/29/20 13:13: POC Total CO2 (Misc Panel) 16.0L, POC Glucose (Misc Panel) 208H, POC Sodium (Misc Panel) 140, POC Potassium (Misc Panel) 4.2, POC Chloride (Misc Panel) 105, POC Blood Urea Nitrogen (Misc Panel 14, POC Ionized Calcium (Misc Panel) 5.2, POC Creatinine (Misc Panel) 1.3, POC Hematocrit (Misc Panel) 49.0 08/29/20 13:17: Lactic Acid Level 14.9*H 08/29/20 14:25: Blood Gas Bicarbonate Standard 16.8, Venous Blood pH 7.187L, Venous Blood Partial Pressure CO2 50.2H, Venous Blood Partial Pressure O2 108.6H, Venous Blood Total Carbon Dioxide 20.2L, Venous Blood HCO3 18.6L, Venous Blood Oxygen Saturation 97.0H, Venous Blood Base Excess -9.8L 08/29/20 16:43: Coronavirus (COVID-19)(PCR) NEGATIVE, Influenza Type A (RT-PCR) NEGATIVE, Influenza Type B (RT-PCR) NEGATIVE, Respiratory Syncytial Virus (PCR) NEGATIVE 08/29/20 20:46: Lactic Acid Followup at 4 Hours 1.2 CBC/BMP Laboratory Tests 08/29/20 13:00 Home Medications Scheduled Buprenorphine HCl/Naloxone HCl (Suboxone 8 mg-2 mg Sl Film) 1 Mis Mis, 1 FILM SL BID Levetiracetam (Levetiracetam) 750 Mg Tablet, 750 MG PO BID Sofosbuvir/Velpatasvir (Sofosbuvir-Velpatasvir 400-100) 1 Each Tablet, 1 TAB PO DAILY Scheduled PRN Albuterol Sulfate (Albuterol Sulfate Hfa) 8.5 Gm Hfa.aer.ad, 2 PUFFS INH Q4H PRN for SHORTNESS OF BREATH Famotidine (Famotidine) 40 Mg Tablet, 40 MG PO DAILY PRN for HEARTBURN Sumatriptan Succinate (Sumatriptan Succinate) 100 Mg Tablet, 50 MG PO BID PRN for MIGRAINE Miscellaneous Medications [Patient Comment] MED LIST OBTAINED FROM PHARMACY Allergies Coded Allergies: Penicillins (Verified Allergy, Unknown, 12/17/18) RASH A-FIB/CHADSVASC A-FIB History Current/History of A-Fib/PAF?: No ISAIAS CABA MD Aug 29, 2020 22:13
[2020-08-29] MEDS ORDERED: NS 1,000 ML IV SCH (22:15)
[2020-08-30] MEDS ORDERED: CLOPIDOGREL 300 MG TAB (PLAVIX) PO STA (00:56)
[2020-08-30] MEDS ORDERED: ASPIRIN 81MG ENTERIC TABLET PO SCH (01:00)
[2020-08-30 01:55] LABS: BASO % 0.1 % (0.0-1.0); HEMATOCRIT 42.2 % (42.0-52.0); HEMOGLOBIN 14.8 g/dl (13.5-17.5); LYMPH # 0.9 10^3/uL (1.5-5.0); LYMPH % 4.5 % (24.0-44.0); MEAN CORPUSCULAR HEMOGLOBIN 29.9 pg (27.0-33.0); MEAN CORPUSCULAR HGB CONC 35.1 g/dl (32.0-36.5); MEAN CORPUSCULAR VOLUME 85.3 fl (80.0-96.0); MONO # 1.1 10^3/uL (0.0-0.8); MONO % 5.2 % (2.0-8.0); NEUTROPHILS # 18.7 10^3/uL (1.5-8.5); NEUTROPHILS % 89.7 % (36.0-66.0); PLATELET COUNT, AUTOMATED 202 10^3/uL (150-450); RED BLOOD COUNT 4.95 10^6/uL (4.30-6.10); WHITE BLOOD COUNT 20.8 10^3/uL (4.0-10.0)
[2020-08-30 02:05] LABS: INR 1.02; PROTHROMBIN TIME 13.6 SECONDS (12.5-14.3)
[2020-08-30 02:35] LABS: ALBUMIN 3.8 GM/DL (3.2-5.2); ALT/SGPT 26 U/L (12-78); BILIRUBIN,TOTAL 0.6 MG/DL (0.2-1.0); BLOOD UREA NITROGEN 10 MG/DL (7-18); CALCIUM LEVEL 7.8 MG/DL (8.5-10.1); CARBON DIOXIDE LEVEL 23 MEQ/L (21-32); CHLORIDE LEVEL 108 MEQ/L (98-107); CK-MB VALUE MASS 29.6 NG/ML (<3.6); CPK CREATINE PHOSPHOKINASE 1018 U/L (39-308); CREATININE FOR GFR 0.76 MG/DL (0.70-1.30); GLOMERULAR FILTRATION RATE > 60.0 (>60); GLUCOSE, FASTING 99 MG/DL (70-100); MB/CK RELATIVE INDEX 2.91 (< OR =4); SODIUM LEVEL 138 MEQ/L (136-145); TROPONIN I 6.29 NG/ML (< 0.10)
--- NOTE | 2020-08-30 03:49 | DS.PDOC ---
Discharge Summary General Date of Admission Aug 29, 2020 at 22:10 Date of Discharge 08/30/20 Discharge Summary PROCEDURES PERFORMED DURING STAY: [None]. COMPLICATIONS/CHIEF COMPLAINT: Seizure Disorder, Status Epilepticus. HISTORY OF PRESENT ILLNESS: 35-year-old male with a history of asthma, hepatitis C, epilepsy, polysubstance abuse, brought to ER by EMS, for 2 episodes of status epilepticus, first lasting 15 seconds, second lasting 15 minutes. On arrival patient was obtunded, GSC 3. Received 2 mg narcan in ER given hx of opiate use (presently on suboxone), which seemed to rouse patient. He takes keppra 750 mg daily, which was given as an IV infusion. Neurologist Dr. Mcconnell was consulted from ER recommended additional 750 mg IV, and to increase keppra to 1500 mg PO bid. Of note, patient's lactic acid was 14.9, trop 0.24 on arrival, without acute ischemic changes on EKG. Repeat trop was 7.09. Repeat EKG showing T wave inversions in anterior leads. Patient denied active chest pain, but has no recollection for past 6-8 hours. HOSPITAL COURSE: Status epilepticus - 2 episodes, 15 sec and 15 min - presented with low GCS, obtunded. Due to hx of opiate abuse and presently on suboxone, was given 2 mg naloxone - per report, has good compliance with meds - CT head without acute findings, as above - received 750 mg IV keppra in ER, as well as ativan 3 mg IV for agitation during post ictal state - D/w Dr. Mcconnell, increase dose of keppra to 1500 mg PO BID - administered additional dose of keppra 750 mg IV NSTEMI - Trop 0.24 on arrival, EKG showing NSR - repeat trop 7.04, 6.29, with t wave inversions on anterior leads - denies active chest pain - d/w Dr. Odom (cardiology), recommended ASA 81 mg, plavix 300 mg - does not recommend starting heparin ggt due to possibility of repeat seizure a nd increased risk of intracranial bleed - recommends transfer to higher level of care with PCI capabilities - d/w Dr. Milner, psychiatry adult physician and Dr. Brody, insurance professional at [facility], who have accepted patient for transfer to ICU, under ICU care and cardiology consulting - I discussed risks with patient, agreeable for transfer. #Elevated Lactic acid #Leukocytosis - on arrival LA 14.9, WBC 14.8, rising to 20.8. Likely reactive. - s/p 2500 cc IV NS bolus, LA normalized to < 1.5 Rhabdomyolysis - CK on arrival 200, increased to 1000 - s/p 2500 cc NS bolus - presently on maintenance fluids Asthma - albuterol nebs prn HCV - needs to follow up with ID outpatient Dispo: transfer to [facility] due to NSTEMI, need for PCI capabilities. DISCHARGE MEDICATIONS: Please see below. ALLERGIES: Please see below. PHYSICAL EXAMINATION ON DISCHARGE: VITAL SIGNS: please see below General: NAD, comfortable HEENT: PERRLA, EOMI, sclerae clear Neck: supple, normal ROM, no JVD Respiratory: lungs CTAB, no wheeze, no rales, no crackles CVS: RRR, normal S1, S2, no murmurs Abdo: soft, no masses, no hepatosplenomegaly, BS+, no rebound tenderness Extremities: no edema, pulses 2+ MSK: no joint deformities, normal ROM Neuro: no focal neuro deficits, moving all 4 extremities, CN2-12 intact. Streng th 5/5 in all 4 extremities. No nystagmus. Psych: calm, cooperative, AAO x 2 LABORATORY DATA: Please see below. IMAGING: CT head wo contrast (08/29/20) FINDINGS: Brain: Normal. No hemorrhage. Unremarkable white matter. No mass effect. Cerebral ventricles: No ventriculomegaly. Paranasal sinuses: Small retention cyst right maxillary sinus. Otherwise unremarkable. Mastoid air cells: Visualized mastoid air cells are well aerated. Bones/joints: Unremarkable. No acute fracture. Soft tissues: Unremarkable. IMPRESSION: No acute intracranial findings. MICROBIOLOGY: Please see below. CXR (08/29/20): FINDINGS: There is no acute infiltrate or pulmonary edema. Lungs are clear. The heart is not significantly enlarged. The mediastinal silhouette is unremarkable. The visualized osseous structures are intact. PROGNOSIS: good ACTIVITY: [As tolerated]. DIET: as tolerated DISCHARGE PLAN: transfer to [facility] for cardiology evaluation, possible need for PCI facilities in setting of suspected NSTEMI. DISPOSITION: transfer to [facility] DISCHARGE INSTRUCTIONS: . Please follow-up with your primary care doctor within 3-5 days . Please follow-up with neurology within 1-2 weeks . Please follow up with cardiology in 1-2 weeks . Please taking medications as prescribed. . If you develop bleeding, chest pain, shortness of breath, seizures, nausea, fevers, or otherwise worsening of your symptoms, please call 911 or return to the nearest emergency room DISCHARGE CONDITION: [Stable]. TIME SPENT ON DISCHARGE: 35 minutes Vital Signs/I&Os Vital Signs Date Time Temp Pulse Resp B/P (MAP) Pulse Ox O2 Delivery O2 Flow Rate FiO2 08/30/20 03:00 87 20 118/56 (76) 99 Room Air 08/30/20 00:00 97.6 08/29/20 12:58 4.0 I&O- Last 24 Hours up to 6 AM0 08/30/20 06:00 Intake Total 2715.0 ml Output Total 1600 ml Balance 1115.0 ml Laboratory Data Labs 24H Laboratory Tests 2 08/29/20 13:00: Immature Granulocyte % (Auto) 1.0, Neutrophils (%) (Auto) 53.9, Lymphocytes (%) (Auto) 38.3, Monocytes (%) (Auto) 4.3, Eosinophils (%) (Auto) 2.0, Basophils (%) (Auto) 0.5, Neutrophils # (Auto) 8.0, Lymphocytes # (Auto) 5.7H, Monocytes # (Auto) 0.6, Eosinophils # (Auto) 0.3, Basophils # (Auto) 0.1, Nucleated Red Blood Cells % (auto) 0.0, Total Bilirubin 0.2, Direct Bilirubin < 0.1, Aspartate Amino Transf (AST/SGOT) 19, Alanine Aminotransferase (ALT/SGPT) 20, Alkaline Phosphatase 76, Total Creatine Kinase 203, Creatine Kinase MB 2.6, Creatine Kinase MB Relative Index 1.28, Troponin I 0.24H, Total Protein 7.1, Albumin 3.8, Albumin/Globulin Ratio 1.2, Thyroid Stimulating Hormone (TSH) 2.120, Salicylates Level 4.1L, Urine Opiates Screen NEGATIVE, Urine Methadone Screen NEGATIVE, Acetaminophen Level < 2.0L, Urine Barbiturates Screen NEGATIVE, Urine Phencyclidine Screen NEGATIVE, Urine Amphetamines Screen NEGATIVE, Urine Benzodiazepines Screen POSITIVEH, Urine Cocaine Metabolite Screen NEGATIVE, Urine Cannabinoids Screen POSITIVEH, Ethyl Alcohol Level < 0.003 08/29/20 13:03: POC pH (Misc Panel) 6.928*L, POC Base Excess (Misc Panel) -22.0L, POC Saturated Percent O2 (Misc) 85L, POC pO2 (Misc Panel) 80.0, POC pCO2 (Misc Panel) 49.0H, POC HCO3 (Misc Panel) 10.2L, POC Total CO2 (Misc Panel) 12.0L 08/29/20 13:04: Urine Color YELLOW, Urine Appearance HAZY, Urine pH 5.0, Urine Specific [place] 1.011, Urine Protein 2+H, Urine Glucose (UA) NEGATIVE, Urine Ketones NEGATIVE, Urine Blood 2+H, Urine Nitrite NEGATIVE, Urine Bilirubin NEGATIVE, Urine Urobilinogen 0.2, Urine Leukocyte Esterase NEGATIVE, Urine WBC (Auto) 3, Urine RBC (Auto) 7H, Urine Hyaline Casts (Auto) 0, Urine Bacteria (Auto) 1+H, Urine Squamous Epithelial Cells 0, Urine Mucus (Auto) SMALL, Urine Sperm (Auto) , Blood Gas Bicarbonate Standard 9.0, Venous Blood pH 6.882L, Venous Blood Partial Pressure CO2 61.3H, Venous Blood Partial Pressure O2 117.5H, Venous Blood Total Carbon Dioxide 13.1L, Venous Blood HCO3 11.3L, Venous Blood Oxygen Saturation 95.6H, Venous Blood Base Excess -22.8L 08/29/20 13:13: POC Total CO2 (Misc Panel) 16.0L, POC Glucose (Misc Panel) 208H, POC Sodium (Misc Panel) 140, POC Potassium (Misc Panel) 4.2, POC Chloride (Misc Panel) 105, POC Blood Urea Nitrogen (Misc Panel 14, POC Ionized Calcium (Misc Panel) 5.2, POC Creatinine (Misc Panel) 1.3, POC Hematocrit (Misc Panel) 49.0 08/29/20 13:17: Lactic Acid Level 14.9*H 08/29/20 14:25: Blood Gas Bicarbonate Standard 16.8, Venous Blood pH 7.187L, Venous Blood Partial Pressure CO2 50.2H, Venous Blood Partial Pressure O2 108.6H, Venous Blood Total Carbon Dioxide 20.2L, Venous Blood HCO3 18.6L, Venous Blood Oxygen Saturation 97.0H, Venous Blood Base Excess -9.8L 08/29/20 16:43: Coronavirus (COVID-19)(PCR) NEGATIVE, Influenza Type A (RT-PCR) NEGATIVE, Influenza Type B (RT-PCR) NEGATIVE, Respiratory Syncytial Virus (PCR) NEGATIVE 08/29/20 20:46: Lactic Acid Followup at 4 Hours 1.2 08/29/20 23:05: Troponin I 7.04#*H 08/30/20 01:41: Troponin I 6.29*H, Immature Granulocyte % (Auto) 0.5, Neutrophils (%) (Auto) 89.7H, Lymphocytes (%) (Auto) 4.5L, Monocytes (%) (Auto) 5.2, Eosinophils (%) (Auto) 0.0, Basophils (%) (Auto) 0.1, Neutrophils # (Auto) 18.7H, Lymphocytes # (Auto) 0.9L, Monocytes # (Auto) 1.1H, Eosinophils # (Auto) 0.0, Basophils # (Auto) 0.0, Nucleated Red Blood Cells % (auto) 0.0, Prothrombin Time 13.6, Prothromb Time International Ratio 1.02, Anion Gap 7L, Glomerular Filtration Rate > 60.0, Calcium Level 7.8L, Total Bilirubin 0.6#, Aspartate Amino Transf (AST/SGOT) 54H, Alanine Aminotransferase (ALT/SGPT) 26, Alkaline Phosphatase 66, Total Creatine Kinase 1018#H, Creatine Kinase MB 29.6H, Creatine Kinase MB Relative Index 2.91, Total Protein 7.0, Albumin 3.8, Albumin/Globulin Ratio 1.2 CBC/BMP Laboratory Tests 08/29/20 13:00 08/30/20 01:41 Discharge Medications Scheduled Buprenorphine HCl/Naloxone HCl (Suboxone 8 mg-2 mg Sl Film) 1 Mis Mis, 1 FILM SL BID, (Reported) Levetiracetam (Levetiracetam) 750 Mg Tablet, 750 MG PO BID, (Reported) Sofosbuvir/Velpatasvir (Sofosbuvir-Velpatasvir 400-100) 1 Each Tablet, 1 TAB PO DAILY, (Reported) Scheduled PRN Albuterol Sulfate (Albuterol Sulfate Hfa) 8.5 Gm Hfa.aer.ad, 2 PUFFS INH Q4H PRN for SHORTNESS OF BREATH, (Reported) Famotidine (Famotidine) 40 Mg Tablet, 40 MG PO DAILY PRN for HEARTBURN, (Reported) Sumatriptan Succinate (Sumatriptan Succinate) 100 Mg Tablet, 50 MG PO BID PRN for MIGRAINE, (Reported) Miscellaneous Medications [Patient Comment] , (Reported) MED LIST OBTAINED FROM PHARMACY Allergies Coded Allergies: Penicillins (Verified Allergy, Unknown, 12/17/18) ISAIAS BERGER MD Aug 30, 2020 03:49
[2020-08-30 04:06] VITALS: BP 122/56
[2020-08-30] MEDS ORDERED: ASPI-551 PO (04:22)
[2020-08-30] MEDS ORDERED: PLAV1TAB2 PO (04:22)
[2020-08-30] MEDS ORDERED: KEPP250T5 PO (04:22)
--- NOTE | 2020-08-30 07:20 | ECGEPIP ---
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
[2020-08-30] MEDS ORDERED: ENOXAPARIN 40MG/0.4ML SYRINGE (J1650 PER 10MG) SC SCH (09:00)
[2020-08-30] MEDS ORDERED: levETIRAcetam 250MG TABLET (KEPPRA) PO SCH (09:00)
[2020-08-30] MEDS ORDERED: DOCUSATE SODIUM 100MG CAPSULE PO SCH (09:00)
--- NOTE | 2020-08-30 16:45 | ECGEPIP ---
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
== END 2020-08-30 04:08 | disposition short-term general hospital (02) | DRG 190 ==
LOC: EDBD 12:49 → M ED 12:49 → M ED INP 22:10 → ENRESERV 23:40
PROVIDERS: ADMIT Family Medicine; ATTEND Family Medicine
DX: I21.4 Non-ST elevation (NSTEMI) myocardial infarction (principal); M62.82 Rhabdomyolysis; J45.909 Unspecified asthma, uncomplicated; B19.20 Unspecified viral hepatitis C without hepatic coma; G40.909 Epilepsy, unspecified, not intractable, without status epilepticus; F15.10 Other stimulant abuse, uncomplicated; R74.02 Elevation of levels of lactic acid dehydrogenase [LDH]; Z20.822 Contact with and (suspected) exposure to COVID-19; Z79.899 Other long term (current) drug therapy; Z88.0 Allergy status to penicillin

== ENCOUNTER → 2020-09-12 | Outpatient (CLI) | payer OTHER ==
[~2020-09-12] MED LIST changes: +ALBU8.5H INH; +ASPI-551 PO; +FAMO40TA3 PO; +LEVE750T5 PO; +PATIENT COMMENT; +PLAV1TAB2 PO; +SOFO1TAB PO; +SUMA100T2 PO
[2020-09-12 15:04] LABS: ALBUMIN 3.6 GM/DL (3.2-5.2); ALT/SGPT 26 U/L (12-78); BILIRUBIN,TOTAL 0.2 MG/DL (0.2-1.0); BLOOD UREA NITROGEN 4 MG/DL (7-18); CALCIUM LEVEL 8.5 MG/DL (8.5-10.1); CARBON DIOXIDE LEVEL 29 MEQ/L (21-32); CHLORIDE LEVEL 103 MEQ/L (98-107); CREATININE FOR GFR 0.84 MG/DL (0.70-1.30); GLOMERULAR FILTRATION RATE > 60.0 (>60); GLUCOSE, FASTING 83 MG/DL (70-100); POTASSIUM SERUM 3.9 MEQ/L (3.5-5.1); SODIUM LEVEL 137 MEQ/L (136-145); TOTAL PROTEIN 6.8 GM/DL (6.4-8.2)
== END ==
LOC: M LAB 13:03
PROVIDERS: ATTEND Psychiatry & Neurology Neurology
DX: G40.001 Localization-related (focal) (partial) idiopathic epilepsy and epileptic syndromes with seizures of localized onset, not intractable, with status epilepticus (principal)

== ENCOUNTER → 2020-12-04 | Outpatient (CLI) | payer OTHER ==
[2020-12-04 17:57] LABS: ALBUMIN 3.9 GM/DL (3.2-5.2); ALT/SGPT 23 U/L (12-78); BILIRUBIN,DIRECT < 0.1 MG/DL (0.0-0.2); BILIRUBIN,TOTAL 0.3 MG/DL (0.2-1.0)
[2020-12-04 18:07] LABS: HEPATITIS B SURFACE ANTIBODY POSITIVE (POSITIVE)
== END ==
LOC: M PLALAB 13:52
PROVIDERS: ATTEND Internal Medicine Infectious Disease
DX: B18.2 Chronic viral hepatitis C (principal)

== ENCOUNTER 2022-03-29 12:51 | Emergency (ER) | payer OTHER ==
[~2022-03-29] VITALS: Ht 175.3 cm; Wt 86.4 kg
[~2022-03-29 12:51] MED LIST changes: +CLOP75TA99 PO; +DOXY-443 PO; -DOXY1CAP62 PO; -PLAV1TAB2 PO
[2022-03-29] MEDS ORDERED: VIMP50TA3 PO (13:42)
[2022-03-29] MEDS ORDERED: BRIV10TA PO (13:42)
[2022-03-29] MEDS ORDERED: SUMAtriptan SUCCINATE 25 MG TAB PO ONE (14:20)
[2022-03-29] MEDS ORDERED: NS 1,000 ML IV ONE (14:20)
[2022-03-29] MEDS ORDERED: METOCLOPRAMIDE INJ 10MG/2ML VIAL IV ONE (14:20)
[2022-03-29 16:06] VITALS: BP 137/80
[2022-03-29 16:48] LABS: BASO % 0.2 % (0.0-1.0); EOS # 0.1 10^3/uL (0.0-0.5); EOS % 0.7 % (0.0-3.0); HEMATOCRIT 41.8 % (42.0-52.0); HEMOGLOBIN 14.3 g/dl (13.5-17.5); LYMPH # 1.5 10^3/uL (1.5-5.0); LYMPH % 17.9 % (24.0-44.0); MEAN CORPUSCULAR HEMOGLOBIN 29.5 pg (27.0-33.0); MEAN CORPUSCULAR HGB CONC 34.2 g/dl (32.0-36.5); MEAN CORPUSCULAR VOLUME 86.2 fl (80.0-96.0); MONO # 0.8 10^3/uL (0.0-0.8); MONO % 9.4 % (2.0-8.0); NEUTROPHILS # 6.1 10^3/uL (1.5-8.5); NEUTROPHILS % 71.6 % (36.0-66.0); PLATELET COUNT, AUTOMATED 181 10^3/uL (150-450); RED BLOOD COUNT 4.85 10^6/uL (4.30-6.10); WHITE BLOOD COUNT 8.5 10^3/uL (4.0-10.0)
[2022-03-29 17:09] LABS: LIPASE 27 U/L (12-53)
[2022-03-29 17:11] LABS: ALBUMIN 4.2 G/DL (3.2-5.2); ALKALINE PHOSPHATASE 74 U/L (46-116); ALT/SGPT 17 U/L (7.0-40); AST/SGOT 23 U/L (<34); BILIRUBIN,DIRECT 0.1 MG/DL (<0.4); BILIRUBIN,TOTAL 0.3 MG/DL (0.3-1.2); BLOOD UREA NITROGEN 10 MG/DL (9-23); CALCIUM LEVEL 9.2 MG/DL (8.5-10.1); CARBON DIOXIDE LEVEL 26 MMOL/L (20-31); CHLORIDE LEVEL 105 MMOL/L (98-107); GLOMERULAR FILTRATION RATE > 60.0 (>60); GLUCOSE, FASTING 84 MG/DL (60-100); POTASSIUM SERUM 3.8 MMOL/L (3.5-5.1); SODIUM LEVEL 139 MMOL/L (136-145); TOTAL PROTEIN 7.2 G/DL (5.7-8.2)
[2022-03-29] MEDS ORDERED: IMIT50TA PO (18:22)
== END 2022-03-29 18:31 | disposition home or self-care (01) ==
LOC: M ED 12:51
DX: G43.909 Migraine, unspecified, not intractable, without status migrainosus (principal); G40.909 Epilepsy, unspecified, not intractable, without status epilepticus; K21.9 Gastro-esophageal reflux disease without esophagitis; Z79.899 Other long term (current) drug therapy; Z88.0 Allergy status to penicillin

== ENCOUNTER → 2022-07-22 | Outpatient (CLI) | payer OTHER ==
[~2022-07-22] MED LIST changes: +BRIV10TA PO; +IMIT50TA PO; +VIMP50TA3 PO
== END ==
LOC: M RAD 14:52
PROVIDERS: ATTEND Family Medicine Addiction Medicine
DX: M51.36 Other intervertebral disc degeneration, lumbar region (principal); M25.50 Pain in unspecified joint

== ENCOUNTER → 2023-07-29 | Outpatient (REF) ==
[~2023-07-29] MED LIST changes: +DOXY-323 PO; -DOXY-443 PO
== END ==
LOC: M PLAIMG 14:39
PROVIDERS: ATTEND Internal Medicine
DX: M50.122 Cervical disc disorder at C5-C6 level with radiculopathy (principal); M62.830 Muscle spasm of back

== ENCOUNTER → 2023-08-26 | Outpatient (CLI) | payer OTHER | LOC: M WUC 13:05 | PROVIDERS: ATTEND Psychiatry & Neurology Epilepsy | DX: G93.81 Temporal sclerosis (principal); G40.109 Localization-related (focal) (partial) symptomatic epilepsy and epileptic syndromes with simple partial seizures, not intractable, without status epilepticus ==

== ENCOUNTER → 2023-09-03 | Outpatient (REF) | payer OTHER | LOC: M LABWUC 17:49 | PROVIDERS: ATTEND Psychiatry & Neurology Epilepsy | DX: G40.919 Epilepsy, unspecified, intractable, without status epilepticus (principal); G93.81 Temporal sclerosis; G40.109 Localization-related (focal) (partial) symptomatic epilepsy and epileptic syndromes with simple partial seizures, not intractable, without status epilepticus ==

== ENCOUNTER → 2024-10-10 | Outpatient (CLI) | payer OTHER ==
[~2024-10-10] MED LIST changes: -DOXY-323 PO; +DOXY-441 PO; +GABA-1490 PO; -GABA600T4 PO
== END ==
LOC: M RAD 13:55
PROVIDERS: ATTEND Family Medicine Addiction Medicine
DX: M25.562 Pain in left knee (principal)

== ENCOUNTER → 2024-11-19 | Outpatient (CLI) | payer OTHER | LOC: M RAD 11:11 | PROVIDERS: ATTEND Family Medicine Addiction Medicine | DX: M25.562 Pain in left knee (principal); M25.462 Effusion, left knee; S83.282A Other tear of lateral meniscus, current injury, left knee, initial encounter; X58.XXXA Exposure to other specified factors, initial encounter; Y92.9 Unspecified place or not applicable; Y93.9 Activity, unspecified; Y99.9 Unspecified external cause status ==

== ENCOUNTER → 2025-01-17 | Outpatient (CLI) | payer OTHER ==
[2025-01-17 14:52] LABS: ALT/SGPT 39 U/L (7.0-40); AST/SGOT 36 U/L (<34); CALCIUM LEVEL 9.8 MG/DL (8.5-10.1); CARBON DIOXIDE LEVEL 29 MMOL/L (20-31); CHLORIDE LEVEL 102 MMOL/L (98-107); CHOLESTEROL LEVEL 252 MG/DL (<200); CHOLESTEROL RISK RATIO 5.83 (<5); CREATININE FOR GFR 0.96 MG/DL (0.70-1.30); GLOMERULAR FILTRATION RATE > 90.0 (>60); LDL CHOLESTEROL 146.0 MG/DL (<100); NON-HDL-C 208.8 MG/DL; POTASSIUM SERUM 4.1 MMOL/L (3.5-5.1); SODIUM LEVEL 141 MMOL/L (136-145); TRIGLYCERIDES LEVEL 314 MG/DL (<150)
[2025-01-17 15:18] LABS: ESTIMATED AVERAGE GLUCOSE 111.0 MG/DL (60-110)
== END ==
LOC: M RAD 12:12
PROVIDERS: ATTEND Nurse Practitioner Family
DX: R06.02 Shortness of breath (principal); E66.811 Obesity, class 1; R61 Generalized hyperhidrosis

== ENCOUNTER → 2025-01-24 | Outpatient (CLI) | payer OTHER | LOC: M EKG 11:11 | PROVIDERS: ATTEND Nurse Practitioner Family | DX: R06.02 Shortness of breath (principal); Z53.9 Procedure and treatment not carried out, unspecified reason ==